=== PATIENT | female | born 1970 | race Caucasian/White ===

== ENCOUNTER 2016-08-27 14:35 | Emergency (ER) | payer SELFPAY ==
[2016-08-27] MEDS ORDERED: DEXAMETHASONE SOD PHOSPHATE 10MG/ML VIAL PO ONE (14:45)
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
== END 2016-08-27 15:14 | disposition home or self-care (01) ==
LOC: ER 14:35
DX: J02.9 Acute pharyngitis, unspecified (principal); J01.00 Acute maxillary sinusitis, unspecified
CPT/HCPCS: 99282

== ENCOUNTER 2017-03-24 12:12 | Emergency (ER) | payer SELFPAY ==
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
== END 2017-03-24 13:44 | disposition home or self-care (01) ==
LOC: ER 12:12
DX: S90.31XA Contusion of right foot, initial encounter (principal); W22.8XXA Striking against or struck by other objects, initial encounter; Y92.009 Unspecified place in unspecified non-institutional (private) residence as the place of occurrence of the external cause
CPT/HCPCS: 99283

== ENCOUNTER 2017-04-03 13:04 | Emergency (ER) | payer SELFPAY ==
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
== END 2017-04-03 14:09 | disposition home or self-care (01) ==
LOC: ER 13:04
DX: K04.7 Periapical abscess without sinus (principal)
CPT/HCPCS: 99282

== ENCOUNTER 2017-11-13 09:41 | Emergency (ER) | payer BC ==
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
[2017-11-13] MEDS ORDERED: 0.9 % SODIUM CHLORIDE 1000ML 1,000 ML IV PRN (10:43)
[2017-11-13] MEDS ORDERED: LEVOFLOXACIN/D5W 750 MG/150 ML BAG IVPB ONE (10:43)
[2017-11-13 11:11] LABS: HEMATOCRIT 41.8 % (35.0-47.0); HEMOGLOBIN 13.5 gm/dl (11.6-16.0); MEAN CELL VOLUME 92.1 fl (81-97); MEAN CORPUSCULAR HEMOGLOBIN 29.7 pg (27-33); MEAN CORPUSCULAR HGB CONC 32.3 g/dl (32-36); PLATELET COUNT 315 K/uL (130-400); RED BLOOD COUNT 4.54 M/uL (3.80-5.40); RED CELL DISTRIBUTION WIDTH 13.3 % (11.5-14.5); WHITE BLOOD COUNT W/O DIFF 10.3 K/uL (4.2-12.2)
[2017-11-13 11:23] LABS: BLOOD UREA NITROGEN 10 mg/dL (6-20); CREATININE 0.5 mg/dL (0.5-0.9); EST GLOMERULAR FILTRATION RATE > 60 mL/min; PLATELET ESTIMATE NORMAL (NORMAL)
[2017-11-13 11:26] LABS: GLUCOSE,RANDOM 105 mg/dL (74-109)
[2017-11-13] MEDS ORDERED: NEOMYCIN/POLYMYXIN B SULF/HC 10ML BTL OT ONE (11:43)
[2017-11-13] MEDS ORDERED: PROPARACAINE HCL OPTH 15ML BTL OPTH ONE (11:44)
== END 2017-11-13 13:07 | disposition home or self-care (01) ==
LOC: ER 09:41
DX: H60.502 Unspecified acute noninfective otitis externa, left ear (principal); I10 Essential (primary) hypertension; F17.210 Nicotine dependence, cigarettes, uncomplicated
CPT/HCPCS: 99284 ×2; 96365; 80048; 85027; J1956

== ENCOUNTER 2019-01-14 18:53 | Emergency (ER) | payer BC | END 2019-01-14 19:04 | disposition left against medical advice (07) | LOC: ER 18:53 | DX: Z53.29 Procedure and treatment not carried out because of patient's decision for other reasons (principal) ==